=== PATIENT | male | born 1975 | race Caucasian/White ===

== ENCOUNTER 2017-03-16 06:01 | Emergency (ER) | payer MEDICAID ==
[~2017-03-16] VITALS: Ht 170.2 cm; Wt 73.0 kg
[2017-03-16] MEDS ORDERED: BACITRACIN ZINC OINT UDPKT TOP ONE (09:30)
[2017-03-16] MEDS ORDERED: LIDOCAINE HCL 1%/EPI 1:200,000 30 ML VIAL MC ONE (09:30)
[2017-03-16] MEDS ORDERED: LIDOCAINE 1%/EPI 1:200,000 10 ML VIAL IJ ONE (10:04)
[2017-03-16 11:14] VITALS: BP 122/74
[2017-03-16] MEDS ORDERED: IBUPROFEN 600MG TABLET PO ONE (11:15)
== END 2017-03-16 11:15 | disposition home or self-care (01) ==
LOC: ER 07:17
DX: L02.412 Cutaneous abscess of left axilla (principal)
CPT/HCPCS: 10060; 99283; Z7610

== ENCOUNTER 2018-01-14 11:05 | Emergency (ER) | payer MEDICAID ==
[~2018-01-14] VITALS: Ht 170.2 cm; Wt 73.0 kg
[2018-01-14 11:13] VITALS: BP 131/82
== END 2018-01-14 18:01 | disposition left against medical advice (07) ==
LOC: ER 12:56
DX: Z53.21 Procedure and treatment not carried out due to patient leaving prior to being seen by health care provider (principal)